=== PATIENT | female | born 1985 | race Caucasian/White ===

== ENCOUNTER 2017-01-12 18:42 | Emergency (ER) | payer OTHER ==
[~2017-01-12 18:42] MED LIST: COLACE100 MG PO; IBU600 M1 PO; ROBAXIN500 MG PO
[2017-01-12 22:22] VITALS: BP 128/83
== END 2017-01-12 22:22 | disposition home or self-care (01) ==
LOC: ED 18:42
DX: S92.811A Other fracture of right foot, initial encounter for closed fracture (principal); M79.672 Pain in left foot; M79.671 Pain in right foot; G89.29 Other chronic pain; X58.XXXA Exposure to other specified factors, initial encounter; Y93.89 Activity, other specified; Y99.8 Other external cause status; Y92.89 Other specified places as the place of occurrence of the external cause
CPT/HCPCS: J1885; Q0092

== ENCOUNTER 2017-05-23 15:36 | Emergency (ER) | payer OTHER ==
[2017-05-23 16:26] LABS: BASOPHIL % 0.5 % (0-2); PLATELET COUNT 214 x10^3mcL (130-400); RED CELL DISTRIBUTION WIDTH 12.8 % (11.5-14.5)
[2017-05-23 16:33] LABS: CALCIUM 9.5 mg/dL (8.5-10.1); CARBON DIOXIDE 27.9 mmol/L (21-32); CHLORIDE SERUM 105 mmol/L (98-107); CREATININE SERUM 0.6 mg/dL (0.6-1.0); GFR1 > 60 mL/min; GLUCOSE SERUM 83 mg/dL (74-106); POTASSIUM SERUM 3.8 mmol/L (3.5-5.1); SODIUM SERUM 138 mmol/L (136-145)
[2017-05-23 17:07] LABS: microscopic required? NO
[2017-05-23 17:19] LABS: urine erythrocyte NEGATIVE (NEGATIVE)
[2017-05-23 18:00] VITALS: BP 106/74
== END 2017-05-23 18:00 | disposition home or self-care (01) ==
LOC: ED 15:36
PROVIDERS: Emergency Medicine
DX: O26.891 Other specified pregnancy related conditions, first trimester (principal); N83.201 Unspecified ovarian cyst, right side; R19.7 Diarrhea, unspecified; Z3A.12 12 weeks gestation of pregnancy
CPT/HCPCS: J2405; J7030

== ENCOUNTER 2017-08-01 14:40 | Emergency (ER) | payer OTHER ==
[~2017-08-01] VITALS: Ht 162.6 cm; Wt 68.6 kg
[2017-08-01 15:01] VITALS: Ht 162.6 cm; Wt 68.6 kg
[2017-08-01 15:45] LABS: BASOPHIL % 0.7 % (0-2); PLATELET COUNT 204 x10^3mcL (130-400); RED CELL DISTRIBUTION WIDTH 13.5 % (11.5-14.5)
[2017-08-01 15:54] LABS: CALCIUM 8.4 mg/dL (8.5-10.1); CARBON DIOXIDE 24.1 mmol/L (21-32); CHLORIDE SERUM 103 mmol/L (98-107); CREATININE SERUM 0.6 mg/dL (0.6-1.0); GFR1 > 60 mL/min; GLUCOSE SERUM 105 mg/dL (74-106); POTASSIUM SERUM 3.4 mmol/L (3.5-5.1); SODIUM SERUM 137 mmol/L (136-145)
[2017-08-01 15:59] LABS: ALKALINE PHOSPHATASE 43 U/L (46-116); ALT/SGPT 32 U/L (14-59); AST/SGOT 15 U/L (15-37); BILIRUBIN TOTAL 0.3 mg/dL (0.20-1.00); TOTAL PROTEIN, SERUM 6.7 g/dL (6.4-8.2)
[2017-08-01 17:28] VITALS: BP 101/55
== END 2017-08-01 17:47 | disposition home or self-care (01) ==
LOC: ED 14:40
PROVIDERS: Emergency Medicine
DX: O26.892 Other specified pregnancy related conditions, second trimester (principal); K52.9 Noninfective gastroenteritis and colitis, unspecified; E87.6 Hypokalemia; E86.0 Dehydration; Z3A.21 21 weeks gestation of pregnancy
CPT/HCPCS: J2405; J7030; Q0092

== ENCOUNTER 2019-05-09 19:24 | Emergency (ER) | payer OTHER ==
[~2019-05-09] VITALS: Ht 162.6 cm; Wt 73.0 kg
[2019-05-09 20:04] VITALS: Ht 162.6 cm; Wt 73.0 kg
[2019-05-09 21:24] VITALS: BP 125/67
== END 2019-05-09 21:24 | disposition home or self-care (01) ==
LOC: ED 19:24
DX: S70.362A Insect bite (nonvenomous), left thigh, initial encounter (principal); L03.116 Cellulitis of left lower limb; W57.XXXA Bitten or stung by nonvenomous insect and other nonvenomous arthropods, initial encounter; Y93.89 Activity, other specified; Y92.89 Other specified places as the place of occurrence of the external cause; Y99.8 Other external cause status
CPT/HCPCS: J7512; Q0163